=== PATIENT | female | born 1985 | race Caucasian/White ===

== ENCOUNTER 2022-07-20 12:13 | Emergency (ER) | payer MEDICAID, OTHER ==
[~2022-07-20] VITALS: Ht 167.6 cm; Wt 78.0 kg
[2022-07-20] MEDS ORDERED: LORAZEPAM 0.5MG TABLET PO ONE (13:30)
[2022-07-20 14:39] LABS: BASOPHILS % 1.1 % (0.0-2.0); EOSINOPHILS % 2.7 % (0.0-5.0); HEMOGLOBIN. 11.7 g/dL (12.0-16.0); LYMPHOCYTES % 26.8 % (20.0-50.0); MEAN CORPUSCULAR HEMOGLOBIN 25.8 pg (28.0-32.0); MEAN CORPUSCULAR VOLUME 77.2 fL (81.0-99.0); MEAN PLATELET VOLUME 8.1 fl (7.4-10.4); MONOCYTES % 9.6 % (2.0-8.0); NEUTROPHILS % 59.8 % (40.0-76.0); PLATELET 305 x1000/uL (130-400); RED BLOOD CELL COUNT 4.53 mill/uL (4.2-5.4); RED CELL DISTRIBUTION WIDTH 16.2 % (11.6-14.6)
[2022-07-20 14:46] LABS: CHLORIDE 111 mEq/L (98-107)
[2022-07-20 14:51] LABS: HCG SCREEN NEGATIVE
[2022-07-20] MEDS ORDERED: LORA-249 MT (15:10)
[2022-07-20 16:05] VITALS: BP 132/87
== END 2022-07-20 16:06 | disposition home or self-care (01) ==
LOC: ER 12:13
DX: F41.9 Anxiety disorder, unspecified (principal); D50.9 Iron deficiency anemia, unspecified; F17.210 Nicotine dependence, cigarettes, uncomplicated; Z71.6 Tobacco abuse counseling
CPT/HCPCS: 36415; 71045; 80053; 84484; 84703; 85025; 85379; 99284; 99406

== ENCOUNTER 2022-08-15 14:27 | Emergency (ER) | payer MEDICAID ==
[~2022-08-15] VITALS: Ht 149.9 cm; Wt 82.0 kg
[~2022-08-15 14:27] MED LIST: LORA-249 MT
[2022-08-15 16:38] LABS: CLARITY URINE CLEAR (CLEAR); COLOR URINE YELLOW (YELLOW); KETONES URINE TRACE (NEGATIVE); LEUKOCYTE ESTERASE URINE NEGATIVE (NEGATIVE); NITRITE URINE NEGATIVE (NEGATIVE); OCCULT BLOOD URINE NEGATIVE (NEGATIVE); PH URINE 5.5 (4.5-8.0); PROTEIN URINE NEGATIVE (NEGATIVE); SPECIFIC GRAVITY URINE 1.026 (1.005-1.030); UROBILINOGEN URINE 0.2 E.U./dL (0.2-1.0)
[2022-08-15] MEDS ORDERED: ACETAMINOPHEN 325MG TABLET PO NR (16:45)
[2022-08-15 18:42] LABS: BG BASE EXCESS -5.4 mmol/L (-2.0-2.0); BG CARBOXYHEMOGLOBIN 0.3 % (0.5-1.5); BG DEOXYHEMOGLOBIN 2.5 % (0.0-5.0); BG FRACTION INSPIRED OXYGEN 21; BG HCO3 ACT 18.3 mmol/L (22.0-26.0); BG METHEMOGLOBIN 0.1 % (0.0-1.5); BG OXYGEN SATURATION 97.5 % (92.0-98.5); BG OXYHEMOGLOBIN 97.1 % (94.0-97.0); BG PCO2 30.6 mmHg (35.0-45.0); BG PH 7.395 (7.350-7.450); BG PO2 99.7 mmHg (75.0-100.0); BG SAMPLE SITE RIGHT BRACHIAL; BG TOTAL HEMOGLOBIN 12.9 g/dL (12.0-18.0); BG VENT MODE ROOM AIR
[2022-08-15 20:19] VITALS: BP 124/78
== END 2022-08-15 20:20 | disposition home or self-care (01) ==
LOC: ER 14:27
DX: R07.89 Other chest pain (principal); R10.9 Unspecified abdominal pain; Z88.0 Allergy status to penicillin; Z90.49 Acquired absence of other specified parts of digestive tract; Z98.51 Tubal ligation status; Z88.2 Allergy status to sulfonamides
CPT/HCPCS: 36600; 71046; 81003; 81025; 82375; 82805; 93005; 99285

== ENCOUNTER 2022-12-07 23:46 | Emergency (ER) | payer MEDICAID ==
[~2022-12-07] VITALS: Ht 149.9 cm; Wt 93.0 kg
[2022-12-08] MEDS ORDERED: KETOROLAC 30MG/ML VIAL IV STA (01:04)
[2022-12-08] MEDS ORDERED: ONDANSETRON HCL 4MG/2ML INJ IV STA (01:04)
[2022-12-08] MEDS ORDERED: SODIUM CHLORIDE 0.9% 1,000 ML IV ONE (01:15)
[2022-12-08 01:34] LABS: EOSINOPHILS % 2.2 % (0.0-5.0); HEMATOCRIT. 36.5 % (36.0-48.0); LYMPHOCYTES % 31.4 % (20.0-50.0); MEAN CORPUSCULAR HEMOGLOBIN 25.6 pg (28.0-32.0); MEAN CORPUSCULAR VOLUME 77.8 fL (81.0-99.0); MEAN PLATELET VOLUME 7.6 fl (7.4-10.4); MONOCYTES % 7.4 % (2.0-8.0); PLATELET 352 x1000/uL (130-400); RED CELL DISTRIBUTION WIDTH 15.3 % (11.6-14.6)
[2022-12-08 01:41] LABS: CHLORIDE 106 mEq/L (98-107); PROTHROMBIN TIME 10.3 sec (9.6-11.0)
[2022-12-08 01:46] LABS: HCG SCREEN NEGATIVE
[2022-12-08] MEDS ORDERED: MORPHINE SULFATE 4 MG/ML CPJ (NOT FOR IM USE) IV ONE (04:30)
[2022-12-08] MEDS ORDERED: ONDANSETRON HCL 4MG/2ML INJ IV NR (04:30)
[2022-12-08 05:39] LABS: CLARITY URINE CLEAR (CLEAR); COLOR URINE YELLOW (YELLOW); KETONES URINE NEGATIVE (NEGATIVE); LEUKOCYTE ESTERASE URINE NEGATIVE (NEGATIVE); NITRITE URINE NEGATIVE (NEGATIVE); OCCULT BLOOD URINE NEGATIVE (NEGATIVE); PH URINE 5.5 (4.5-8.0); PROTEIN URINE NEGATIVE (NEGATIVE); SPECIFIC GRAVITY URINE 1.027 (1.005-1.030)
[2022-12-08] MEDS ORDERED: TOPUD MT (06:04)
[2022-12-08] MEDS ORDERED: IBUP-2029 MT (06:05)
[2022-12-08 06:25] VITALS: BP 116/76
== END 2022-12-08 06:38 | disposition home or self-care (01) ==
LOC: ER 23:46
DX: R10.11 Right upper quadrant pain (principal); F41.9 Anxiety disorder, unspecified; Z98.51 Tubal ligation status; Z90.49 Acquired absence of other specified parts of digestive tract; Z88.0 Allergy status to penicillin
CPT/HCPCS: 36415; 74176; 76830; 76856; 80053; 81003; 83690; 84703; 85025; 85610; 96361; 96374; 96375; 99285; J2270; J2405; J7030; Z7610

== ENCOUNTER 2023-01-11 23:34 | Emergency (ER) | payer MEDICAID, OTHER ==
[~2023-01-11] VITALS: Ht 149.9 cm; Wt 93.0 kg
[~2023-01-11 23:34] MED LIST changes: +IBUP-2029 MT; +TOPUD MT
[2023-01-11 23:38] VITALS: O2SAT 77
[2023-01-12 01:56] LABS: CLARITY URINE CLEAR (CLEAR); COLOR URINE YELLOW (YELLOW); KETONES URINE TRACE (NEGATIVE); LEUKOCYTE ESTERASE URINE NEGATIVE (NEGATIVE); NITRITE URINE NEGATIVE (NEGATIVE); OCCULT BLOOD URINE NEGATIVE (NEGATIVE); PROTEIN URINE NEGATIVE (NEGATIVE); SPECIFIC GRAVITY URINE 1.024 (1.005-1.030)
[2023-01-12] MEDS ORDERED: ONDANSETRON 4MG ODT PO ONE (02:15)
[2023-01-12] MEDS ORDERED: HYDROCODONE/ACETAMINOPHEN 5/325MG TABLET PO ONE (02:15)
[2023-01-12 02:34] VITALS: BP 126/72
[2023-01-12 03:05] LABS: BASOPHILS % 0.7 % (0.0-2.0); EOSINOPHILS % 1.8 % (0.0-5.0); HEMATOCRIT. 35.9 % (36.0-48.0); HEMOGLOBIN. 12.1 g/dL (12.0-16.0); LYMPHOCYTES % 29.6 % (20.0-50.0); MEAN CORPUSCULAR HEMOGLOBIN 26.2 pg (28.0-32.0); MEAN CORPUSCULAR VOLUME 77.7 fL (81.0-99.0); MONOCYTES % 7.5 % (2.0-8.0); NEUTROPHILS % 60.4 % (40.0-76.0); PLATELET 324 x1000/uL (130-400); RED BLOOD CELL COUNT 4.63 mill/uL (4.2-5.4); RED CELL DISTRIBUTION WIDTH 16.1 % (11.6-14.6)
[2023-01-12 03:09] LABS: CHLORIDE 107 mEq/L (98-107)
[2023-01-12] MEDS ORDERED: METOCLOPRAMIDE HCL 10MG/2ML VIAL IM ONE (04:45)
[2023-01-12] MEDS ORDERED: METO5TAB86 MT (04:57)
[2023-01-12] MEDS ORDERED: HYDR-4001 MT (04:57)
[2023-01-12 05:15] VITALS: PULSE 71; RESP 16; TEMP 98.4
== END 2023-01-12 05:17 | disposition home or self-care (01) ==
LOC: ER 23:34
DX: R10.11 Right upper quadrant pain (principal); R07.89 Other chest pain; F41.9 Anxiety disorder, unspecified; Z98.51 Tubal ligation status; Z90.49 Acquired absence of other specified parts of digestive tract; Z88.0 Allergy status to penicillin
CPT/HCPCS: 81025; 93005; 99285; 80053; 81003; 83690; 85025; 84484; 36415; 71045; 76705; 96372; Q0162; J2765; Z7610

== ENCOUNTER 2023-04-10 08:40 | Emergency (ER) | payer MEDICAID ==
[~2023-04-10] VITALS: Ht 165.1 cm; Wt 90.0 kg
[~2023-04-10 08:40] MED LIST changes: +HYDR-4001 MT; +METO5TAB86 MT
[2023-04-10 08:58] VITALS: O2SAT 99
[2023-04-10 09:19] LABS: BASOPHILS % 0.8 % (0.0-2.0); DIFFERENTIAL COMMENT 0; EOSINOPHILS % 2.4 % (0.0-5.0); HEMATOCRIT. 37.6 % (36.0-48.0); HEMOGLOBIN. 12.6 g/dL (12.0-16.0); LYMPHOCYTES % 27.9 % (20.0-50.0); MEAN CORPUSCULAR HEMOGLOBIN 26.1 pg (28.0-32.0); MEAN CORPUSCULAR HGB CONC 33.4 g/dL (31.0-37.0); MEAN CORPUSCULAR VOLUME 78.2 fL (81.0-99.0); MEAN PLATELET VOLUME 7.5 fl (7.4-10.4); MONOCYTES % 6.8 % (2.0-8.0); NEUTROPHILS % 62.1 % (40.0-76.0); PLATELET 356 x1000/uL (130-400); RED BLOOD CELL COUNT 4.81 mill/uL (4.2-5.4); RED CELL DISTRIBUTION WIDTH 15.6 % (11.6-14.6); WHITE BLOOD COUNT 6.8 x1000/uL (4.5-11.0)
[2023-04-10 10:01] LABS: CLARITY URINE CLEAR (CLEAR); COLOR URINE YELLOW (YELLOW); GLUCOSE URINE NEGATIVE (NEGATIVE); KETONES URINE NEGATIVE (NEGATIVE); LEUKOCYTE ESTERASE URINE 1+ (NEGATIVE); NITRITE URINE NEGATIVE (NEGATIVE); OCCULT BLOOD URINE 3+ (NEGATIVE); PH URINE 5.5 (4.5-8.0); PROTEIN URINE NEGATIVE (NEGATIVE); SPECIFIC GRAVITY URINE 1.022 (1.005-1.030); UROBILINOGEN URINE 0.2 E.U./dL (0.2-1.0)
[2023-04-10 10:25] LABS: MUCUS URINE 3+ /lpf (< = 2+); SQUAMOUS EPITHELIAL CELL URINE 1+ /lpf (RARE/1+)
[2023-04-10 10:26] LABS: CHLORIDE 109 mEq/L (98-107); INDEX HEMOLYSI 1 (1-3); INDEX ICTERIC 1 (1-4); INDEX LIPEMIC 1 (1-3); POTASSIUM 3.4 mEq/L (3.5-5.1); SODIUM 138 mEq/L (136-145)
[2023-04-10 10:28] LABS: HCG SCREEN NEGATIVE
[2023-04-10 10:31] LABS: RBC URINE 25-50 /hpf (0-2)
[2023-04-10 10:33] LABS: BACTERIA URINE TRACE; TRICHOMONAS URINE RARE
[2023-04-10 10:35] LABS: ALANINE AMINOTRANSFERASE 27 IU/L (13-61); ALBUMIN 3.9 g/dL (3.4-5.0); ASPARTATE AMINOTRANSFERASE 15 IU/L (15-37); BILIRUBIN TOTAL 0.4 mg/dL (0.1-1.0); CALCIUM 9.2 mg/dL (8.5-10.1); CARBON DIOXIDE 25 mEq/L (21-32); CREATININE 0.7 mg/dL (0.6-1.3); GLUCOSE 91 mg/dL (70-105); PROTEIN TOTAL 8.6 g/dL (6.0-8.3)
[2023-04-10 10:38] LABS: UREA NITROGEN BLOOD 11 mg/dL (7-21)
[2023-04-10] MEDS ORDERED: ONDANSETRON 4MG ODT PO NR (11:00)
[2023-04-10] MEDS ORDERED: FAMOTIDINE 20MG TABLET PO NR (11:00)
[2023-04-10] MEDS ORDERED: MAGNESIUM/ALUMINUM HYDROXIDE/SIMETHICONE 30ML UDC PO NR (11:00)
[2023-04-10] MEDS ORDERED: POTASSIUM CHLORIDE 20MEQ/PACKET PO NR (11:00)
[2023-04-10] MEDS ORDERED: ONDANSETRON HCL 4MG/2ML INJ IV NR (12:00)
[2023-04-10] MEDS ORDERED: SODIUM CHLORIDE 0.9% 1,000 ML IV ONE (12:00)
[2023-04-10] MEDS ORDERED: FAMOTIDINE 20MG/2ML VIAL IV NR (12:00)
[2023-04-10] MEDS ORDERED: METH-653 MT (13:59)
[2023-04-10] MEDS ORDERED: METHOCARBAMOL 500MG TABLET PO ONE (14:00)
[2023-04-10 14:22] VITALS: BP 126/81; PULSE 62; RESP 20; TEMP 98.2
== END 2023-04-10 14:49 | disposition home or self-care (01) ==
LOC: ER 08:40
DX: R10.11 Right upper quadrant pain (principal); Z88.0 Allergy status to penicillin; Z88.1 Allergy status to other antibiotic agents; Z88.8 Allergy status to other drugs, medicaments and biological substances; Z88.6 Allergy status to analgesic agent; Z88.2 Allergy status to sulfonamides; Z79.899 Other long term (current) drug therapy; Z90.49 Acquired absence of other specified parts of digestive tract; Z98.51 Tubal ligation status
CPT/HCPCS: 80053; 81003; 81025; 84703; 83690; 85025; 36415; 74176; 76705; 96361; 96374; 96375; 99285; Q0162; J3490; J2405; Z7610 ×3